=== PATIENT | male | born 1955 | race Caucasian/White ===

== ENCOUNTER 2020-01-30 01:49 | Outpatient (CLI) | payer BC, SELFPAY ==
[2020-01-30 22:44] LABS: SARS-CoV-2 RNA PCR Negative
== END 2020-01-30 01:50 | disposition home or self-care (01) ==
LOC: ANHCOVIDDT 01:49
PROVIDERS: PCP Internal Medicine; Visit Provider Internal Medicine Gastroenterology
DX: Z01.812 Encounter for preprocedural laboratory examination (principal); Z11.59 Encounter for screening for other viral diseases
CPT/HCPCS: 87635; C9803; U0003

== ENCOUNTER 2020-02-01 00:56 | Day surgery (SDC) | payer BC, SELFPAY ==
[2020-01-25 11:27] VITALS: BMI 31.6
[2020-02-01 06:40] VITALS: BMI 32.5
[2020-02-01] MEDS: LACTATED RINGERS 1,000 ML 150 ML IV CONT (06:53)
--- NOTE | 2020-02-01 06:53 | PM.HPGS ---
History of Present Illness History of Present Illness Consent: Risks, benefits, and alternatives have been discussed and questions answered. Patient agrees to proceed with procedure. Chief complaint: Neoplasm Screening Narrative: Mahendra Daugherty is a 64 year old W male referred for screening colonoscopy secondary history of colonic polyps. Last colonoscopy was 3 years ago which time a moderate size sigmoid polyp was removed with a tubulovillous adenoma. Patient is in no interval complaints. No family history of colon polyps or colon cancer. [facility] Past Medical History Medical History (Updated 02/01/20 @ 06:54 by Laith Jaimes MD) Diabetes mellitus Hypertension Surgical History Surgical History (Updated 02/01/20 @ 06:54 by Laith Jaimes MD) Status post bilateral knee replacements Meds Home Medications and Allergies Home Medications Medication Instructions Recorded Confirmed Type losartan-hydrochlorothiazide 1 tablet PO DAILY 01/25/20 01/25/20 History metformin 1,000 mg PO BID 01/25/20 01/25/20 History Allergies Allergy/AdvReac Type Severity Reaction Status Date / Time No Known Allergies Allergy Verified 01/25/20 11:27 Exam Const: Orientation/consciousness: patient oriented x3 Resp: Auscultation: clear to auscultation bilaterally Cardio: Rate: regular rate Rhythm: regular rhythm Heart sounds: no murmurs GI: GI Palp: Yes Soft to palpation, No Tenderness to palpation present (GI), Yes No hepatosplenomegaly present and No Palpable mass present Auscultation: normal bowel sounds Neuro: General: patient oriented x3 and no focal motor deficits Extrem: General: no pedal edema Assessment and Plan Additional Plan screening colonoscopy secondary history of colonic polyps
[2020-02-01 06:57] LABS: Glucose Point of Care 194 (65-105)
--- NOTE | 2020-02-01 07:18 | P.PNAN_ITS ---
Anes - Initial Pre Proc Eval Procedure: Operation Date: 02/01/20 08:00 Proposed Procedures p Screening Colonoscopy - Laith Jaimes MD Date/Time: 02/01/20 07:18 Surgeon: Laith Jaimes MD Pre Op Diagnosis: Neoplasm Screening Patient Data Age: 64 Gender: M Height: 5 ft 10 in Weight: 102.7 kg Allergies Allergy/AdvReac Type Severity Reaction Status Date / Time No Known Allergies Allergy Verified 01/25/20 11:27 Home Medications Medication Instructions Recorded Confirmed Type losartan-hydrochlorothiazide 1 tablet PO DAILY 01/25/20 01/25/20 History metformin 1,000 mg PO BID 01/25/20 01/25/20 History Laboratory Tests 02/01/20 06:55 POC Capillary Glucose 194 mg/dl H mg/dl (65-105) Patient hx anesthesia problems: none Family hx anesthesia problems: none [facility] Past Medical History Medical History Diabetes mellitus Hypertension Surgical History Surgical History Status post bilateral knee replacements Anes - Eval Final PreProcedure Day of Procedure 02/01/20 07:18 Patient weight: obese Heart: regular rate and rhythm Lungs: clear to auscultation Airway: Mallampati scale class II Neurological: alert and oriented Last oral intake: >/= 8 hours ASA classification: III Emergent: no Anesthetic plan: proceed Anesthesia type and monitoring: general GIVS and standard monitoring Informed Consent: The patient's anesthetic plan and its attendant risks and benefits were discussed with the patient/family/POA. Questions were solicited and answers provided to the satisfaction of the patient/family/POA.
[2020-02-01 08:12] VITALS: BP 101/60; PULSE 59; RESP 16; O2SAT 98
[2020-02-01 08:22] VITALS: BP 103/66; PULSE 67; RESP 16; O2SAT 98
[2020-02-01 08:32] VITALS: BP 124/85; PULSE 74; RESP 16; O2SAT 98
== END 2020-02-01 08:48 | disposition home or self-care (01) ==
PROVIDERS: PCP Internal Medicine; Visit Provider Internal Medicine Gastroenterology
PROC: 0DJD8ZZ Inspection of Lower Intestinal Tract, Via Natural or Artificial Opening Endoscopic (ICD-10-PCS; CPT 45378; principal; 2020-02-01 08:00)
DX: Z12.11 Encounter for screening for malignant neoplasm of colon (principal); K63.5 Polyp of colon; K62.1 Rectal polyp; K57.30 Diverticulosis of large intestine without perforation or abscess without bleeding; K64.4 Residual hemorrhoidal skin tags; I10 Essential (primary) hypertension; E11.9 Type 2 diabetes mellitus without complications; E66.9 Obesity, unspecified; Z68.32 Body mass index [BMI] 32.0-32.9, adult
CPT/HCPCS: 45380; 88305; J2704; J7120